=== PATIENT | male | born 1985 | race Caucasian/White ===

== ENCOUNTER 2017-01-23 15:16 | Emergency (ER) | payer OTHER ==
[~2017-01-23] VITALS: Ht 180.3 cm; Wt 102.0 kg
[2017-01-23 15:17] VITALS: BP 154/93; PULSE 95; RESP 13; TEMP 98.5; O2SAT 97
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
[2017-01-23] MEDS ORDERED: CYCLOBENZAPRINE HCL 10 MG TAB PO ONE (17:15)
[2017-01-23] MEDS ORDERED: ACETAMINOPHEN/HYDROcodone 325 MG/5 MG TAB PO ONE (17:15)
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
[2017-01-23] MEDS ORDERED: CYCL1TAB29 PO (17:51)
[2017-01-23] MEDS ORDERED: NORC5TAB PO (17:51)
== END 2017-01-23 18:02 | disposition home or self-care (01) ==
LOC: NEPD 15:16
DX: S16.1XXA Strain of muscle, fascia and tendon at neck level, initial encounter (principal); F17.210 Nicotine dependence, cigarettes, uncomplicated; V49.59XA Passenger injured in collision with other motor vehicles in traffic accident, initial encounter; Y92.410 Unspecified street and highway as the place of occurrence of the external cause
CPT/HCPCS: 72125; 99284; L0150

== ENCOUNTER 2017-03-08 13:30 | Emergency (ER) | payer SELFPAY ==
[~2017-03-08] VITALS: Ht 180.3 cm; Wt 102.0 kg
[~2017-03-08 13:30] MED LIST: CYCL10TA PO; NORC5TAB PO
[2017-03-08 13:32] VITALS: BP 140/97; PULSE 81; RESP 20; TEMP 98.7; O2SAT 97
[2017-03-08 13:36] VITALS: BP 140/97; PULSE 82; RESP 18; TEMP 98.7; O2SAT 96
[2017-03-08 14:29] LABS: AUTOMATED NEUTROPHIL # 10.4 TH/MM3 (1.8-7.7); BASOPHIL # 0.1 TH/MM3 (0-0.2); BASOPHIL % 0.5 % (0.0-2.0); EOSINOPHIL # 0.1 TH/MM3 (0-0.4); EOSINOPHIL % 0.5 % (0.0-4.0); HEMATOCRIT 43.5 % (39.0-51.0); HEMO FLAGS DIFF FINAL; LYMPHOCYTE # 1.5 TH/MM3 (1.0-4.8); MEAN CELL VOLUME 88.5 FL (80.0-100.0); MEAN CORPUSCULAR HEMOGLOBIN 31.6 PG (27.0-34.0); MEAN CORPUSCULAR HGB CONC 35.7 % (32.0-36.0); MONO % 5.6 % (0.0-8.0); NEUT % 81.4 % (16.0-70.0); PLATELET COUNT 273 TH/MM3 (150-450); RED BLOOD COUNT 4.91 MIL/MM3 (4.50-5.90); WHITE BLOOD COUNT 12.8 TH/MM3 (4.0-11.0)
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
[2017-03-08] MEDS ORDERED: ONDANSETRON ODT 4 MG TAB PO ONE (15:00)
[2017-03-08] MEDS ORDERED: ACETAMINOPHEN 500 MG CPLT PO ONE (15:00)
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
== END 2017-03-08 15:58 | disposition home or self-care (01) ==
LOC: NEPC 13:30
DX: S01.01XA Laceration without foreign body of scalp, initial encounter (principal); F17.200 Nicotine dependence, unspecified, uncomplicated; W22.8XXA Striking against or struck by other objects, initial encounter
CPT/HCPCS: 12002; 70450; 72125; 85025

== ENCOUNTER 2017-04-02 08:15 | Emergency (ER) | payer SELFPAY ==
[2017-04-02 08:16] VITALS: BP 145/85; PULSE 78; RESP 12; TEMP 98; O2SAT 98
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
[2017-04-02] MEDS ORDERED: CEPH-460 PO (09:04)
== END 2017-04-02 09:16 | disposition home or self-care (01) ==
LOC: NEPD 08:15
DX: Z48.02 Encounter for removal of sutures (principal); F17.200 Nicotine dependence, unspecified, uncomplicated
CPT/HCPCS: 99283